=== PATIENT | male | born 1975 | race African-American/Black ===

== ENCOUNTER 2022-03-31 03:40 | Emergency (ER) | payer OTHER ==
[~2022-03-31] VITALS: Ht 190.5 cm; Wt 90.7 kg
--- NOTE | 2022-03-31 03:40 | NUR ---
BITA KEYS, PREBOOK. TAKEN TO CHAIR C
--- NOTE | 2022-03-31 03:42 | NUR ---
Dr. Hurd examining patient.
[2022-03-31 03:43] VITALS: BP 136/90
--- NOTE | 2022-03-31 04:17 | NUR ---
Patient taken to [facility] via wheelchair.
[2022-03-31 04:26] VITALS: BP 136/90
--- NOTE | 2022-03-31 04:26 | NUR ---
Patient D/C to custody with Johnna KEYS.
== END 2022-03-31 04:26 | disposition home or self-care (01) ==
LOC: MED 03:40
DX: R07.89 Other chest pain (principal); F17.210 Nicotine dependence, cigarettes, uncomplicated
CPT/HCPCS: 71045; 93005; 99283